=== PATIENT | female | born 1975 | race Caucasian/White ===

== ENCOUNTER → 2017-05-23 | Outpatient (CLI) | payer BC | END | disposition home or self-care (01) | LOC: C.PAPS 09:20 | PROVIDERS: ATTEND Obstetrics & Gynecology | DX: Z01.419 Encounter for gynecological examination (general) (routine) without abnormal findings (principal); Z87.42 Personal history of other diseases of the female genital tract ==

== ENCOUNTER → 2017-05-23 | Outpatient (CLI) | payer BC ==
[2017-05-23 16:20] LABS: THYROID STIMULATING HORMONE 0.672 uIu/ml (0.300-4.500)
== END | disposition home or self-care (01) ==
LOC: C.LAB1850 14:37
PROVIDERS: ATTEND Obstetrics & Gynecology
DX: E01.0 Iodine-deficiency related diffuse (endemic) goiter (principal)

== ENCOUNTER → 2017-05-30 | Outpatient (CLI) | payer BC ==
--- NOTE | 2017-05-30 08:28 | DIAGNOSTIC IMAGING REPORT ---
THYROID ULTRASOUND CLINICAL HISTORY: Enlarged thyroid. COMPARISON STUDY: None. TECHNIQUE: Sonography of the thyroid gland was performed. FINDINGS: The right thyroid lobe measures 4.6 x 1.7 x 1.7 cm and the left lobe measures 4.8 x 1.4 x 1.7 cm. The gland is heterogeneous. Differentiation between thyroid nodules and heterogeneous gland is difficult. Several small thyroid nodules are noted, the largest of which is a 0.8 x 0.6 x 0.6 cm isoechoic left upper pole nodule. None of these nodules meet criteria for biopsy. Multiple small colloid cysts are noted. IMPRESSION: 1. Heterogeneous thyroid gland. 2. Numerous small thyroid nodules, as described above. None of these nodules meet criteria for biopsy. Electronically signed by: Rogelio Travis M.D. 05/30/2017 8:27 AM Dictated Date/Time: 05/30/2017 8:21 AM
== END | disposition home or self-care (01) ==
LOC: C.ULTRBC 07:10
PROVIDERS: ATTEND Obstetrics & Gynecology
DX: E01.0 Iodine-deficiency related diffuse (endemic) goiter (principal)

== ENCOUNTER → 2017-09-05 | Outpatient (CLI) | payer BC ==
[2017-09-05 11:11] LABS: THYROID STIMULATING HORMONE 0.452 uIu/ml (0.300-4.500)
[2017-09-06 14:05] LABS: MICROSOMAL AB <1 IU/ML (<9)
== END | disposition home or self-care (01) ==
LOC: C.LABBC 08:53
PROVIDERS: ATTEND Internal Medicine Endocrinology, Diabetes & Metabolism
DX: E04.9 Nontoxic goiter, unspecified (principal)